=== PATIENT | female | born 1980 | race American Indian/Alaskan Native ===

== ENCOUNTER 2017-07-18 10:41 | Outpatient (CLI) | payer MEDICAID | END 2017-07-18 10:42 | disposition home or self-care (01) | LOC: CARD 10:41 | PROVIDERS: ATTEND Obstetrics & Gynecology | DX: O13.9 Gestational [pregnancy-induced] hypertension without significant proteinuria, unspecified trimester (principal); Z3A.00 Weeks of gestation of pregnancy not specified | CPT/HCPCS: 93005; 93010 ==

== ENCOUNTER 2017-10-01 07:42 | Emergency (ER) | payer SELFPAY ==
[2017-10-01 08:31] VITALS: BP 142/101
[2017-10-01 08:41] LABS: Eosinophils # (Auto) 0.1 K/mm3 (0.0-0.4); Eosinophils % (Auto) 1.4 % (0.0-4.3); Hematocrit 38.1 % (30.3-42.9); Hemoglobin 12.7 gm/dl (10.1-14.3); Lymphocytes # (Auto) 1.6 K/mm3 (1.2-5.4); Lymphocytes % (Auto) 43.7 % (13.4-35.0); Mean Corpuscular HGB Conc 33 % (30-34); Mean Corpuscular Hemoglobin 28 pg (28-32); Mean Corpuscular Volume 85 fl (79-97); Monocytes # (Auto) 0.3 K/mm3 (0.0-0.8); Monocytes % (Auto) 8.9 % (0.0-7.3); Platelet Count 277 K/mm3 (140-440); Red Blood Count 4.48 M/mm3 (3.65-5.03); Red Cell Distribution Width 12.5 % (13.2-15.2)
[2017-10-01 08:56] LABS: Alanine Aminotransferase 8 units/L (7-56); Albumin 4.1 g/dL (3.9-5); BUN/Creatinine Ratio 11; Blood Urea Nitrogen 8 mg/dL (7-17); Hemolysis Index 7; Lipase 31 units/L (13-60)
== END 2017-10-01 11:45 | disposition left against medical advice (07) ==
LOC: ED 07:42
DX: O21.8 Other vomiting complicating pregnancy (principal); Z3A.10 10 weeks gestation of pregnancy; Z53.21 Procedure and treatment not carried out due to patient leaving prior to being seen by health care provider
CPT/HCPCS: 36415; 80053; 83690; 85025

== ENCOUNTER 2017-11-20 00:27 | Outpatient (CLI) | payer OTHER ==
[2017-11-20 00:43] VITALS: BP 148/104
[2017-11-20 01:29] LABS: Bilirubin,Urine NEG (Negative); Blood,Urine NEG (Negative); Color,Urine Yellow (Yellow); Mucus,Urine 1+ /HPF; Protein,Urine <15 mg/dL mg/dL (Negative); Urobilinogen,Urine < 2.0 mg/dL (<2.0)
--- NOTE | 2017-11-20 03:18 | Ultrasound Report ---
FINAL REPORT EXAM: US OB < = 14 WEEKS FETUS HISTORY: unable to attain FHTs COMPARISON: None available. TECHNIQUE: Several real-time grayscale and color Doppler images were obtained. Transabdominal exam. FINDINGS: Uterus measures 7.5 x 3.8 by 4.6 centimeters. There is a possible intrauterine gestational sac with septations at its margin within the lower uterine segment region of the endometrial canal. No pole or yolk sac identified. This concerning for blighted ovum. Early live IUP less likely. Gestational sac diameter corresponds to 6 weeks 6 days gestation. There is a hypoechoic structure at the fundal margin the uterus more concerning for fibroid measuring 3.2 x 1.0 x 1.3 centimeters. Right ovary measures 2.2 x 1.7 x 2.3 centimeters. The left ovary measures 4.4 x 3.0 x 2.9 centimeters. Within the left ovary there is a 2.2 centimeters cystic structure which may reflect corpus luteal cyst. Smaller follicles are present within the left ovary. Trace fluid at the margin of the left ovary. Gross vascular flow to the ovaries. No adnexal masses are demonstrated. IMPRESSION: There is a possible intrauterine gestational sac with septations at its margin within the lower uterine segment region of the endometrial canal. No pole or yolk sac identified. This concerning for blighted ovum. Early live IUP less likely. Correlation with serial beta HCGs and followup exam is suggested. No adnexal masses are demonstrated. 2.2 centimeter left ovarian cystic structure which may reflect corpus luteum. Hypoechoic structure at the fundal margin the uterus concerning for fibroid measuring 3.2 centimeters in greatest dimension.
== END 2017-11-20 01:50 | disposition home or self-care (01) ==
LOC: TRG 00:27
PROVIDERS: ATTEND Obstetrics & Gynecology
DX: O34.81 Maternal care for other abnormalities of pelvic organs, first trimester (principal); N83.202 Unspecified ovarian cyst, left side; Z3A.01 Less than 8 weeks gestation of pregnancy
CPT/HCPCS: 76801; 81001

== ENCOUNTER 2018-08-08 23:22 | Emergency (ER) | payer OTHER ==
[2018-08-09 00:16] LABS: Basophils % (Auto) 0.6 % (0.0-1.8); Eosinophils # (Auto) 0.1 K/mm3 (0.0-0.4); Eosinophils % (Auto) 0.8 % (0.0-4.3); Hematocrit 37.5 % (30.3-42.9); Hemoglobin 12.4 gm/dl (10.1-14.3); Lymphocytes # (Auto) 2.2 K/mm3 (1.2-5.4); Lymphocytes % (Auto) 29.8 % (13.4-35.0); Mean Corpuscular HGB Conc 33 % (30-34); Mean Corpuscular Volume 87 fl (79-97); Monocytes # (Auto) 0.5 K/mm3 (0.0-0.8); Monocytes % (Auto) 6.2 % (0.0-7.3); Platelet Count 343 K/mm3 (140-440); Red Cell Distribution Width 12.7 % (13.2-15.2)
[2018-08-09 00:21] LABS: Bilirubin,Urine NEG (Negative); Blood,Urine NEG (Negative); Color,Urine Straw (Yellow); Mucus,Urine FEW /HPF; Protein,Urine <15 mg/dL mg/dL (Negative); Urobilinogen,Urine < 2.0 mg/dL (<2.0)
[2018-08-09 00:37] LABS: Alanine Aminotransferase 7 units/L (7-56); Albumin 4.3 g/dL (3.9-5); BUN/Creatinine Ratio 15; Blood Urea Nitrogen 9 mg/dL (7-17); Calcium 8.7 mg/dL (8.4-10.2); Hemolysis Index 9
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
[2018-08-09] MEDS ORDERED: ZOFRAN ODT PO ONE (01:10)
[2018-08-09] MEDS ORDERED: ROXICODONE PO ONE (01:10)
--- NOTE | 2018-08-09 02:45 | Cat Scan Report ---
PROCEDURE: CT ABDOMEN PELVIS WO CON TECHNIQUE: Computerized axial tomography of the abdomen and pelvis was performed without intravenous contrast. This study is performed without intravascular contrast material and its sensitivity for ab dominal and pelvic pathology, including neoplasms, inflammation, abscess, free fluid, thrombosis, art erial dissection and infarction, is reduced compared with a contrast enhanced study. CT DOSE LENGTH PRODUCT: 443.6 mGycm HISTORY: severe left lower quadrant COMPARISONS: None . FINDINGS: Visualized lower thorax: No significant abnormality. Liver: Normal size and attenuation. Spleen: Normal size and attenuation. Gallbladder and biliary system: The gallbladder is absent. No dilatation of the biliary ductal system . Pancreas: Normal. Adrenals: Normal. Kidneys: Normal. GI tract: The stomach is normal. The small bowel has a normal caliber. No obstruction is seen. The c ecum and appendix are normal. The colon is normal. Moderate fecal debris throughout the colon is note d. . Lymph nodes and mesentery: Normal. Vasculature: Normal.. Bladder: Normal. Reproductive organs: The uterus is slightly pronounced in size. There is an area of hypoattenuation w ithin the uterus, fibroid tumor is suspected.. Peritoneum: No free fluid. Musculoskeletal structures: No significant abnormality. Other: None. IMPRESSION: There is no evidence of intestinal or urinary tract obstruction. The appendix is normal. Moderate fecal debris throughout the colon may represent constipation. The uterus is slightly enlarged with suspected fibroid formation. . This document is electronically signed by Vernell Chung DO., August 09 2018 02:43:13 AM ET
== END 2018-08-09 04:16 | disposition home or self-care (01) ==
LOC: ED 23:22
DX: K59.00 Constipation, unspecified (principal); I10 Essential (primary) hypertension; J45.909 Unspecified asthma, uncomplicated; F17.200 Nicotine dependence, unspecified, uncomplicated; Z90.49 Acquired absence of other specified parts of digestive tract; Z88.6 Allergy status to analgesic agent
CPT/HCPCS: 36415; 74176; 80053; 81001; 84703; 85025; Q0162

== ENCOUNTER 2018-09-09 22:13 | Emergency (ER) | payer SELFPAY ==
[2018-09-10] MEDS ORDERED: BICILLIN L-A IM ONE (00:54)
[2018-09-10] MEDS ORDERED: NACL 0.9% 1000 ML 1,000 ML IV ONE (00:54)
[2018-09-10] MEDS ORDERED: DECADRON IV ONE (00:54)
[2018-09-10] MEDS ORDERED: TORADOL IV ONE (00:55)
[2018-09-10] MEDS ORDERED: HURRICAINE ONE 20% TOPICAL SPRAY MM NR (01:00)
[2018-09-10 01:14] LABS: Basophils # (Auto) 0.1 K/mm3 (0.0-0.1); Basophils % (Auto) 0.6 % (0.0-1.8); Eosinophils # (Auto) 0.2 K/mm3 (0.0-0.4); Eosinophils % (Auto) 1.6 % (0.0-4.3); Hematocrit 34.7 % (30.3-42.9); Hemoglobin 11.6 gm/dl (10.1-14.3); Lymphocytes % (Auto) 15.7 % (13.4-35.0); Mean Corpuscular HGB Conc 33 % (30-34); Mean Corpuscular Volume 86 fl (79-97); Monocytes # (Auto) 0.9 K/mm3 (0.0-0.8); Monocytes % (Auto) 6.8 % (0.0-7.3); Platelet Count 451 K/mm3 (140-440); Red Blood Count 4.04 M/mm3 (3.65-5.03); Red Cell Distribution Width 12.6 % (13.2-15.2)
[2018-09-10 01:37] LABS: Alanine Aminotransferase 9 units/L (7-56); Albumin 3.4 g/dL (3.9-5); BUN/Creatinine Ratio 22; Blood Urea Nitrogen 11 mg/dL (7-17); Calcium 8.4 mg/dL (8.4-10.2); Hemolysis Index 18
[2018-09-10] MEDS ORDERED: PEPCID IV ONE ×2 (01:45→05:06)
--- NOTE | 2018-09-10 01:55 | Emergency Department Report ---
ED ENT HPI - General Chief complaint: Chest Pain Stated complaint: CP/LUPUS FLARE UP/COUGH Time Seen by Provider: 09/10/18 00:32 Source: patient, old records reviewed Mode of arrival: Ambulatory Limitations: No Limitations - History of Present Illness Initial comments: 38-year-old female with no significant past medical history presents to the hospital complaining of feeling unwell for about a week and a half. Patient states she is having recurrent sore throat, hoarseness, intermittent erythematous rash to neck and face area, and fevers. Patient alsohaving generalized fatigue, weakness, and decreased by mouth intake. Patient was seen here on September 05 for similar symptoms. Patient had unremarkable CT angiogram chest, CT neck, chest x-ray, and strep screen. Blood cultures were also negative. Strep culture did come back positive on September 07. Patient was told by ED provider that she might have lupus and LIZZETTE was sent and is still pending. Patient denies a definitive diagnosis of lupus. Patient was provided multiple leasing agent for follow-up. Patient did not follow-up due to lack of insurance. She was discharged on Tylenol and ibuprofen and states she has had no improvement in her symptoms. Dry intermittent cough reported. Patient does not have any problems breathing or drooling. - Related Data Previous Rx's Medication Instructions Recorded Last Taken Type Atenolol [Tenormin] 50 mg PO BID #60 tab 11/16/15 Unknown Rx HYDROcodone/APAP 5-325 [Bryant 1 each PO Q6HR PRN #20 tablet 11/16/15 Unknown Rx 5/325] Ibuprofen [Motrin] 600 mg PO Q8H PRN #30 tablet 11/16/15 Unknown Rx Polyethylene Glycol 3350 [Miralax 17 gm PO QDAY #1 box 08/09/18 Unknown Rx 3350] Acetaminophen 500 mg PO Q6HR PRN #1 liquid 09/05/18 Unknown Rx Dextromethorphan/Benzocaine 1 each PO Q2HR PRN #20 lozenge 09/10/18 Unknown Rx [Cepacol Sorethroat-Cough Pradeep] Ibuprofen Oral Liqd [Motrin Oral 400 mg PO QID PRN #1 bottle 09/10/18 Unknown Rx Liq 100 mg/5 ml] predniSONE [Deltasone] 40 mg PO QDAY 5 Days tab 09/10/18 Unknown Rx Allergies Allergy/AdvReac Type Severity Reaction Status Date / Time morphine Allergy Hives Verified 08/08/18 23:27 ED Dental HPI - General Chief complaint: Chest Pain Stated complaint: CP/LUPUS FLARE UP/COUGH Time Seen by Provider: 09/10/18 00:32 Source: patient, old records reviewed Mode of arrival: Ambulatory Limitations: No Limitations - History of Present Illness Initial comments: 38-year-old female with a past medical history of asthma and hypertension presents to the Hospital complaints of continued dizziness - Related Data Previous Rx's Medication Instructions Recorded Last Taken Type Atenolol [Tenormin] 50 mg PO BID #60 tab 11/16/15 Unknown Rx HYDROcodone/APAP 5-325 [Bryant 1 each PO Q6HR PRN #20 tablet 11/16/15 Unknown Rx 5/325] Ibuprofen [Motrin] 600 mg PO Q8H PRN #30 tablet 11/16/15 Unknown Rx Polyethylene Glycol 3350 [Miralax 17 gm PO QDAY #1 box 08/09/18 Unknown Rx 3350] Acetaminophen 500 mg PO Q6HR PRN #1 liquid 09/05/18 Unknown Rx Dextromethorphan/Benzocaine 1 each PO Q2HR PRN #20 lozenge 09/10/18 Unknown Rx [Cepacol Sorethroat-Cough Pradeep] Ibuprofen Oral Liqd [Motrin Oral 400 mg PO QID PRN #1 bottle 09/10/18 Unknown Rx Liq 100 mg/5 ml] predniSONE [Deltasone] 40 mg PO QDAY 5 Days tab 09/10/18 Unknown Rx Allergies Allergy/AdvReac Type Severity Reaction Status Date / Time morphine Allergy Hives Verified 08/08/18 23:27 ED Review of Systems ROS: Stated complaint: CP/LUPUS FLARE UP/COUGH Other details as noted in HPI Comment: All other systems reviewed and negative ED Past Medical Hx - Past Medical History Hx Hypertension: Yes (CHTN) Hx Diabetes: No Hx Deep Vein Thrombosis: No Hx Renal Disease: No Hx Sickle Cell Disease: No Hx Seizures: No Hx Asthma: Yes (nebulizer, proair, albuterol) Hx HIV: No Additional medical history: Vaginal delivery x 3 - Surgical History Hx Cholecystectomy: Yes - Social History Smoking Status: Former Smoker Substance Use Type: None - Medications Home Medications: Home Medications Medication Instructions Recorded Confirmed Last Taken Type Atenolol [Tenormin] 50 mg PO BID #60 tab 11/16/15 Unknown Rx HYDROcodone/APAP 5-325 [Bryant 1 each PO Q6HR PRN #20 tablet 11/16/15 Unknown Rx 5/325] Ibuprofen [Motrin] 600 mg PO Q8H PRN #30 tablet 11/16/15 Unknown Rx Polyethylene Glycol 3350 [Miralax 17 gm PO QDAY #1 box 08/09/18 Unknown Rx 3350] Acetaminophen 500 mg PO Q6HR PRN #1 liquid 09/05/18 Unknown Rx Dextromethorphan/Benzocaine 1 each PO Q2HR PRN #20 lozenge 09/10/18 Unknown Rx [Cepacol Sorethroat-Cough Pradeep] Ibuprofen Oral Liqd [Motrin Oral 400 mg PO QID PRN #1 bottle 09/10/18 Unknown Rx Liq 100 mg/5 ml] predniSONE [Deltasone] 40 mg PO QDAY 5 Days tab 09/10/18 Unknown Rx ED Physical Exam - General Limitations: No Limitations - Other Other exam information: General: No limitations, patient is alert in no acute distress Head exam: Atraumatic, normocephalic Eyes exam: Normal appearance ENT: Moist mucous membrane, normal oropharynx without exudates, uvula midline. Positive hoarse voice Neck exam: Normal inspection, full range of motion, no meningismus nontender, no stridor Respiratory exam: Clear to auscultation bilateral, no wheezes, rales, crackles Cardiovascular: Normal rate and rhythm, normal heart sounds Abdomen: Soft, nondistended, and nontender, with normal bowel sounds, no rebound, or guarding Extremity: Full range of motion normal inspection no deformity Back: Normal Inspection, full range of motion, no tenderness Neurologic: Alert, oriented x3, cranial nerves intact, no motor or sensory deficit Psychiatric: normal affect, normal mood Skin: Warm, dry, intact ED Course Vital Signs 09/09/18 09/10/18 09/10/18 22:40 00:35 03:57 Temperature 98.7 F 98.4 F Pulse Rate 94 H 94 H 91 H Respiratory 18 19 18 Rate Blood Pressure 148/106 131/92 [Left] O2 Sat by Pulse 100 100 98 Oximetry 09/10/18 05:37 Temperature Pulse Rate 92 H Respiratory 18 Rate Blood Pressure 110/72 [Left] O2 Sat by Pulse 100 Oximetry - Reevaluation(s) Reevaluation #1: 09/19/18 09:24 pt called for follow up Continued to have intermittent body aches, swelling, and peeling intermittent rash and hands she is attempting to see a leasing agent but having difficulty due to lack of referral She was instructed to follow up with PMD and leasing agent She is still currently taking prednisone She was informed verbally informed of her LIZZETTE results so that she may present the information to her future treating physician. ED Medical Decision Making - Lab Data Result diagrams: 09/10/18 01:00 09/10/18 01:00 Lab Results 09/10/18 09/10/18 09/10/18 Range/Units 01:00 01:00 01:00 WBC 12.8 H (4.5-11.0) K/mm3 RBC 4.04 (3.65-5.03) M/mm3 Hgb 11.6 (10.1-14.3) gm/dl Hct 34.7 (30.3-42.9) % MCV 86 (79-97) fl MCH 29 (28-32) pg MCHC 33 (30-34) % RDW 12.6 L (13.2-15.2) % Plt Count 451 H (140-440) K/mm3 Lymph % (Auto) 15.7 (13.4-35.0) % [place] % (Auto) 6.8 (0.0-7.3) % Eos % (Auto) 1.6 (0.0-4.3) % Baso % (Auto) 0.6 (0.0-1.8) % Lymph # 2.0 (1.2-5.4) K/mm3 [place] # 0.9 H (0.0-0.8) K/mm3 Eos # 0.2 (0.0-0.4) K/mm3 Baso # 0.1 (0.0-0.1) K/mm3 Seg Neutrophils % 75.3 H (40.0-70.0) % Seg Neutrophils # 9.6 H (1.8-7.7) K/mm3 Sodium 139 (137-145) mmol/L Potassium 3.7 (3.6-5.0) mmol/L Chloride 101.4 (98-107) mmol/L Carbon Dioxide 26 (22-30) mmol/L Anion Gap 15 mmol/L BUN 11 (7-17) mg/dL Creatinine 0.5 L (0.7-1.2) mg/dL Estimated GFR > 60 ml/min BUN/Creatinine Ratio 22 % Glucose 85 (65-100) mg/dL Calcium 8.4 (8.4-10.2) mg/dL Total Bilirubin < 0.20 (0.1-1.2) mg/dL AST 12 (5-40) units/L ALT 9 (7-56) units/L Alkaline Phosphatase 56 (35-129) units/L Total Protein 6.8 (6.3-8.2) g/dL Albumin 3.4 L (3.9-5) g/dL Albumin/Globulin Ratio 1.0 % HCG, Qual Negative (Negative) - EKG Data -: EKG Interpreted by Me EKG shows normal: sinus rhythm, axis (55), QRS complexes (90), ST-T waves (no stemi) Rate: normal (96) - Medical Decision Making Patient received Hurricaine spray that may look out posterior pharynx. She also received a liter of saline, Decadron, Toradol, and Bicillin for strep throat. Patient will be discharged on prednisone to help with swelling as well as throat lozenges addition to her recently prescribed medication. Once again continued outpatient follow-up encouraged to further workup patient is needed. Patient feels better with ED treatment. - Differential Diagnosis viral syndrome, rheumatologic disorder, pharyngitis, laryngitis Critical Care Time: No Critical care attestation.: If time is entered above; I have spent that time in minutes in the direct care of this critically ill patient, excluding procedure time. ED Disposition Clinical Impression: Strep throat, Laryngitis, Myalgia, Rash Disposition: DC-01 TO HOME OR SELFCARE Is pt being admited?: No Does the pt Need Aspirin: No Condition: Stable Instructions: Strep Throat (ED) Additional Instructions: Take the medication as prescribed. Follow up with your doctor or the clinic/doctor provided. Return if symptoms worsen as indicated by your discharge instructions Prescriptions: Dextromethorphan/Benzocaine [Cepacol Sorethroat-Cough Pradeep] 1 each PO Q2HR PRN #20 lozenge PRN Reason: Sore Throat predniSONE [Deltasone] 40 mg PO QDAY 5 Days tab Ibuprofen Oral Liqd [Motrin Oral Liq 100 mg/5 ml] 400 mg PO QID PRN #1 bottle PRN Reason: Fever >101 Referrals: ADALID HERNANDEZ MD [Primary Care Provider] - 3-5 Days Forms: Accompanied Note Time of Disposition: 04:48
[2018-09-10 05:38] VITALS: BP 110/72
== END 2018-09-10 05:38 | disposition home or self-care (01) ==
LOC: ED 22:13
DX: J02.0 Streptococcal pharyngitis (principal); J04.0 Acute laryngitis; M79.10 Myalgia, unspecified site; I10 Essential (primary) hypertension; J45.909 Unspecified asthma, uncomplicated; Z87.891 Personal history of nicotine dependence; Z90.49 Acquired absence of other specified parts of digestive tract; Z79.899 Other long term (current) drug therapy
CPT/HCPCS: 36415; 80053; 84703; 85025; 93005; 93010; 96361; 96372; 96374; 96375; 99283; J0561; J1100; J1885; J7030

== ENCOUNTER 2020-09-15 12:27 | Emergency (ER) | payer SELFPAY | END 2020-09-15 15:37 | disposition left against medical advice (07) | LOC: ED 12:27 | DX: R10.9 Unspecified abdominal pain (principal); Z53.21 Procedure and treatment not carried out due to patient leaving prior to being seen by health care provider ==